=== PATIENT | male | born 1980 | race Caucasian/White ===

== ENCOUNTER → 2020-07-18 15:11 | Outpatient (BNVA) | payer SELFPAY | PROVIDERS: Family Provider Registered Nurse; Visit Provider Nurse Practitioner Family | DX: M1A.0710 Idiopathic chronic gout, right ankle and foot, without tophus (tophi) (principal); M1A.0720 Idiopathic chronic gout, left ankle and foot, without tophus (tophi) | CPT/HCPCS: 84550 ==